=== PATIENT | male | born 1985 | race Caucasian/White ===

== ENCOUNTER 2019-01-09 10:53 | Emergency (ER) | payer MEDICAID, OTHER, SELFPAY ==
[~2019-01-09] VITALS: Ht 188 cm; Wt 77.7 kg
[2019-01-09 10:54] VITALS: BP 130/69
[2019-01-09] MEDS ORDERED: SERO1TAB PO (10:56)
[2019-01-09] MEDS ORDERED: MIRT1TAB16 PO (10:56)
[2019-01-09] MEDS ORDERED: ACETAMINOPHEN TAB 650MG DOSE (2X325MG) PO ONE (11:45)
--- NOTE | 2019-01-09 12:08 | REP ---
LEFT WRIST, FOUR VIEWS: Four views of the left wrist is performed. There is a nondisplaced fracture of the base of the 5th metacarpal. I see no other evidence of acute fracture or dislocation. IMPRESSION: Nondisplaced fracture base of 5th metacarpal. Electronically Signed by Antonio Lemus MD 01/09/2019 03:35 P
--- NOTE | 2019-01-09 12:13 | REP ---
LEFT HAND SERIES, FOUR VIEWS: Four views left hand performed. There is a nondisplaced fracture at the base of the fifth metacarpal. No other acute fracture, dislocation, or intrinsic bone disease is seen. IMPRESSION: Nondisplaced fracture base of fifth metacarpal. Electronically Signed by Antonio Lemus MD 01/09/2019 03:35 P
== END 2019-01-09 12:23 | disposition home or self-care (01) ==
LOC: M ED 10:53
DX: S62.347A Nondisplaced fracture of base of fifth metacarpal bone, left hand, initial encounter for closed fracture (principal); W22.8XXA Striking against or struck by other objects, initial encounter; Y92.89 Other specified places as the place of occurrence of the external cause; Y93.9 Activity, unspecified; Y99.0 Civilian activity done for income or pay; Z72.0 Tobacco use; F12.10 Cannabis abuse, uncomplicated; Z79.899 Other long term (current) drug therapy

== ENCOUNTER 2019-03-10 16:46 | Emergency (ER) | payer OTHER ==
[~2019-03-10] VITALS: Ht 188 cm; Wt 65.0 kg
[2019-03-10 17:36] LABS: HEMATOCRIT 42.2 % (42.0-52.0); HEMOGLOBIN 14.3 g/dl (13.5-17.5); MEAN CORPUSCULAR HEMOGLOBIN 34.5 pg (27.0-33.0); MEAN CORPUSCULAR HGB CONC 33.9 g/dl (32.0-36.5); MEAN CORPUSCULAR VOLUME 101.9 fl (80.0-96.0); PLATELET COUNT, AUTOMATED 142 10^3/uL (150-450); RED BLOOD COUNT 4.14 10^6/uL (4.30-6.10); WHITE BLOOD COUNT 4.8 10^3/uL (4.0-10.0)
[2019-03-10 18:16] LABS: ACETAMINOPHEN LEVEL < 2.0 UG/ML (10.0-30.0); ALBUMIN 3.9 GM/DL (3.2-5.2); ALT/SGPT 397 U/L (12-78); BILIRUBIN,DIRECT 0.2 MG/DL (0.0-0.2); BILIRUBIN,TOTAL 0.5 MG/DL (0.2-1.0); BLOOD UREA NITROGEN 15 MG/DL (7-18); CALCIUM LEVEL 8.7 MG/DL (8.5-10.1); CARBON DIOXIDE LEVEL 29 MEQ/L (21-32); CHLORIDE LEVEL 104 MEQ/L (98-107); ETHYL ALCOHOL (ETHANOL) < 0.003 % (0.000-0.010); GLOMERULAR FILTRATION RATE > 60.0 (>60); GLUCOSE, FASTING 135 MG/DL (70-100); POTASSIUM SERUM 4.3 MEQ/L (3.5-5.1); SALICYLATE LEVEL 2.8 MG/DL (5.0-30.0); SODIUM LEVEL 140 MEQ/L (136-145); TOTAL PROTEIN 6.4 GM/DL (6.4-8.2)
[2019-03-10 18:18] LABS: AMPHETAMINES LEVEL URINE NEGATIVE (NEGATIVE); BARBITURATES URINE NEGATIVE (NEGATIVE); BENZODIAZEPINES URINE NEGATIVE (NEGATIVE); CANNABINOIDS URINE POSITIVE (NEGATIVE); COCAINE METABOLITE URINE NEGATIVE (NEGATIVE); METHADONE URINE NEGATIVE (NEGATIVE); OPIATES URINE NEGATIVE (NEGATIVE); PHENCYCLIDINE URINE NEGATIVE (NEGATIVE)
--- NOTE | 2019-03-10 21:13 | ECGEPIP ---
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
[2019-03-11 01:59] VITALS: BP 102/64
[2019-03-11 10:25] LABS: HEPATITIS B SURFACE ANTIGEN NEGATIVE (NEGATIVE)
[2019-03-11 10:53] LABS: HEPATITIS B CORE ANTIBODY IGM NEGATIVE (NEGATIVE)
[2019-03-11 10:54] LABS: HEPATITIS A ANTIBODY IGM NEGATIVE (NEGATIVE)
[2019-03-11 10:55] LABS: HEPATITIS C VIRUS ABY INDEX > 11.0 INDEX (<0.8)
== END 2019-03-11 02:03 | disposition short-term general hospital (02) ==
LOC: M ED 16:46
DX: F33.9 Major depressive disorder, recurrent, unspecified (principal); R45.851 Suicidal ideations; Z79.899 Other long term (current) drug therapy; F17.210 Nicotine dependence, cigarettes, uncomplicated
CPT/HCPCS: 36415; 80048; 80076; 80307; 84443; 85027; 86705; 86709; 86803; 87340; 93005; 99285; G0480

== ENCOUNTER → 2019-03-10 | Outpatient (REF) | payer OTHER ==
[~2019-03-10] MED LIST: MIRT1TAB16 PO; SERO1TAB PO
[2019-03-10 19:48] LABS: ALBUMIN 4.4 GM/DL (3.2-5.2); ALT/SGPT 402 U/L (12-78); BILIRUBIN,TOTAL 0.6 MG/DL (0.2-1.0); BLOOD UREA NITROGEN 16 MG/DL (7-18); CALCIUM LEVEL 9.3 MG/DL (8.5-10.1); CARBON DIOXIDE LEVEL 29 MEQ/L (21-32); CHLORIDE LEVEL 104 MEQ/L (98-107); CHOLESTEROL LEVEL 145 MG/DL (<200); CREATININE FOR GFR 0.86 MG/DL (0.70-1.30); FREE T4 1.28 NG/DL (0.76-1.46); GLOMERULAR FILTRATION RATE > 60.0 (>60); GLUCOSE, FASTING 110 MG/DL (70-100); HDL CHOLESTEROL 81 MG/DL (>40); LDL CHOLESTEROL 45 MG/DL (<100); NON-HDL-C 64 MG/DL; POTASSIUM SERUM 4.2 MEQ/L (3.5-5.1); SODIUM LEVEL 138 MEQ/L (136-145); THYROID STIMULATING HORMONE 0.996 uIU/ML (0.358-3.740); TOTAL 25(OH) VITAMIN D 30.5 NG/ML (30.0-100.0); TOTAL PROTEIN 7.2 GM/DL (6.4-8.2); TRIGLYCERIDES LEVEL 96 MG/DL (<150)
[2019-03-10 20:06] LABS: BASO % 0.9 % (0.0-1.0); EOS # 0.1 10^3/uL (0.0-0.50); EOS % 1.7 % (0.0-3.0); HEMATOCRIT 44.6 % (42.0-52.0); HEMOGLOBIN 14.9 g/dl (13.5-17.5); LYMPH % 22.2 % (24.0-44.0); MEAN CORPUSCULAR HEMOGLOBIN 33.3 pg (27.0-33.0); MEAN CORPUSCULAR HGB CONC 33.4 g/dl (32.0-36.5); MEAN CORPUSCULAR VOLUME 99.6 fl (80.0-96.0); MONO # 0.4 10^3/uL (0.0-0.8); MONO % 9.5 % (0.0-5.0); NEUTROPHILS % 65.5 % (36.0-66.0); PLATELET COUNT, AUTOMATED 170 10^3/uL (150-450); RED BLOOD COUNT 4.48 10^6/uL (4.30-6.10); WHITE BLOOD COUNT 4.6 10^3/uL (4.0-10.0)
[2019-03-10 20:42] LABS: HEMOGLOBIN A1c 5.2 %
[2019-03-11 10:20] LABS: HEPATITIS B SURFACE ANTIGEN NEGATIVE (NEGATIVE)
[2019-03-11 10:47] LABS: HEPATITIS B CORE ANTIBODY IGM NEGATIVE (NEGATIVE)
[2019-03-11 10:48] LABS: HIV 1&2 SCREEN CENTAUR NEGATIVE (NEGATIVE)
[2019-03-11 10:49] LABS: HEPATITIS A ANTIBODY IGM NEGATIVE (NEGATIVE)
[2019-03-11 10:54] LABS: HEPATITIS C VIRUS ABY INDEX > 11.0 INDEX (<0.8)
[2019-03-14 09:34] LABS: HSV TYPE II IgG SPECIFIC <0.91 index (0.00-0.90); Lyme Disease IgG/IgM Antibodie <0.91 ISR (0.00-0.90); Lyme Disease IgM Ab Quantitati <0.80 index (0.00-0.79)
== END ==
LOC: M LAB REF 18:34
PROVIDERS: ATTEND Family Medicine
DX: F19.19 Other psychoactive substance abuse with unspecified psychoactive substance-induced disorder (principal); Z13.228 Encounter for screening for other metabolic disorders; R63.4 Abnormal weight loss

== ENCOUNTER → 2019-03-10 | Outpatient (REF) | payer OTHER ==
[2019-03-10 20:50] LABS: APPEARANCE, URINE CLEAR (CLEAR); BACTERIA, URINE AUTO NEGATIVE (NEGATIVE); BILIRUBIN, URINE AUTO NEGATIVE (NEGATIVE); BLOOD, URINE BLOOD NEGATIVE (NEGATIVE); COLOR, URINE STRAW (YELLOW); GLUCOSE, URINE (UA) AUTO NEGATIVE (NEGATIVE); KETONE, URINE AUTO NEGATIVE (NEGATIVE); LEUKOCYTE ESTERASE, URINE AUTO NEGATIVE (NEGATIVE); NITRITE, URINE AUTO NEGATIVE (NEGATIVE); PROTEIN, URINE AUTO NEGATIVE (NEGATIVE); RBC, URINE AUTO 1 /HPF (0-3); SPECIFIC GRAVITY URINE AUTO 1.004 (1.002-1.035); SQUAMOUS EPITHELIAL CELL UR AU 0 /HPF (0-6); UROBILINOGEN, URINE AUTO 0.2 mg/dL (0.0-2.0); WBC, URINE AUTO 0 /HPF (0-3)
== END ==
LOC: M LAB REF 16:42
PROVIDERS: ATTEND Family Medicine
DX: Z13.228 Encounter for screening for other metabolic disorders (principal); R63.4 Abnormal weight loss

== ENCOUNTER → 2019-04-02 | Outpatient (REF) | payer OTHER ==
[2019-04-02 12:15] LABS: INR 0.93; PROTHROMBIN TIME 12.2 SECONDS (11.8-14.0)
[2019-04-03 10:34] LABS: HEPATITIS B SURFACE ANTIBODY POSITIVE (POSITIVE); HEPATITIS B SURFACE ANTIGEN NEGATIVE (NEGATIVE); HIV 1&2 SCREEN CENTAUR NEGATIVE (NEGATIVE)
[2019-04-07 00:06] LABS: HEPATITIS A IgG TOTAL Negative (Negative); HEPATITIS B CORE ANTIBODY IGG Negative (Negative); HEPATITIS C QUANTITATION 4356110 IU/mL (.); HEPATITIS C VIRUS GENOTYPE 3 (.)
== END ==
LOC: M LAB REF 11:23
PROVIDERS: ATTEND Nurse Practitioner Adult Health
DX: B18.2 Chronic viral hepatitis C (principal)

== ENCOUNTER → 2019-06-01 | Outpatient (REF) | payer OTHER | LOC: M LAB REF 17:10 | PROVIDERS: ATTEND Family Medicine | DX: B18.2 Chronic viral hepatitis C (principal) ==

== ENCOUNTER → 2019-06-25 | Outpatient (REF) | payer MEDICAID ==
[2019-06-30 14:15] LABS: HEPATITIS C QUANTITATION HCV Not Detected IU/mL (.)
== END ==
LOC: M LAB REF 16:51
PROVIDERS: ATTEND Nurse Practitioner Adult Health
DX: B18.2 Chronic viral hepatitis C (principal)

== ENCOUNTER 2019-07-24 10:37 | Inpatient (IN) | payer MEDICAID, OTHER ==
[~2019-07-24] VITALS: Ht 188 cm; Wt 70.0 kg
[2019-07-24] MEDS ORDERED: QUET200T2 PO (10:50)
[2019-07-24] MEDS ORDERED: ONDA4TAB5 PO (10:50)
[2019-07-24] MEDS ORDERED: LORA-674 PO (11:15)
[2019-07-24] MEDS ORDERED: NS 1,000 ML IV ONE (11:15)
[2019-07-24 11:37] LABS: HEMATOCRIT 44.6 % (42.0-52.0); HEMOGLOBIN 15.1 g/dl (13.5-17.5); MEAN CORPUSCULAR HEMOGLOBIN 34.5 pg (27.0-33.0); MEAN CORPUSCULAR HGB CONC 33.9 g/dl (32.0-36.5); MEAN CORPUSCULAR VOLUME 101.8 fl (80.0-96.0); PLATELET COUNT, AUTOMATED 214 10^3/uL (150-450); RED BLOOD COUNT 4.38 10^6/uL (4.30-6.10); WHITE BLOOD COUNT 4.9 10^3/uL (4.0-10.0)
[2019-07-24 11:48] LABS: PROTHROMBIN TIME 12.9 SECONDS (11.8-14.0)
[2019-07-24 11:49] LABS: PARTIAL THROMBOPLASTIN TIME 36.8 SECONDS (25.0-38.4)
[2019-07-24 12:02] LABS: ALBUMIN 3.2 GM/DL (3.2-5.2); ALT/SGPT 1223 U/L (12-78); BILIRUBIN,DIRECT 3.3 MG/DL (0.0-0.2); BILIRUBIN,TOTAL 4.3 MG/DL (0.2-1.0); BLOOD UREA NITROGEN 9 MG/DL (7-18); CALCIUM LEVEL 8.7 MG/DL (8.5-10.1); CARBON DIOXIDE LEVEL 29 MEQ/L (21-32); CHLORIDE LEVEL 104 MEQ/L (98-107); CREATININE FOR GFR 0.92 MG/DL (0.70-1.30); GLOMERULAR FILTRATION RATE > 60.0 (>60); GLUCOSE, FASTING 95 MG/DL (70-100); LIPASE 110 U/L (73-393); POTASSIUM SERUM 4.1 MEQ/L (3.5-5.1); SODIUM LEVEL 139 MEQ/L (136-145); TOTAL PROTEIN 7.1 GM/DL (6.4-8.2)
[2019-07-24 12:25] LABS: ATYPICAL LYMPH 5 % (0-5); BASOPHILS 1 % (0-1); EOSINOPHILS 9 % (0-3); LYMPHOCYTES 38 % (16-44); MONOCYTES 3 % (0-5); NEUTROPHILS 39 % (28-66); PLATELET ESTIMATE NORMAL (NORMAL)
[2019-07-24] MEDS ORDERED: REME15TA PO (12:34)
[2019-07-24] MEDS ORDERED: PROAAER10 INH (12:34)
[2019-07-24] MEDS ORDERED: EPIP0.3I2 IM (12:34)
--- NOTE | 2019-07-24 12:35 | REP ---
CHEST, TWO VIEWS: There is no evidence of acute infiltrate. No pleural effusion is seen. The heart is normal in size. The mediastinal silhouette is unremarkable. The visualized osseous structures are intact. IMPRESSION: No acute pulmonary disease. Electronically Signed by Antonio Lemus MD 07/28/2019 08:47 A
--- NOTE | 2019-07-24 14:07 | REP ---
Abdominal right upper quadrant ultrasound: The studies performed for jaundice and the patient is unable to keep anything down for the past 6 days and complains of dark urine. The gallbladder is not distended in spite of the patient being n.p.o. for 12 hours. The gallbladder wall is thickened measuring up to 4 mm, however this could be artifact from under distension. There is no cholelithiasis or pericholecystic fluid. There is no intrahepatic or extrahepatic biliary duct dilatation. The common biliary duct measures 3.6 mm in diameter. The hepatic parenchyma is homogeneous. There are three peripancreatic lymph nodes measuring up to 0.6 cm short axis, normal size. The visualized pancreatic parenchyma is unremarkable. The right kidney measures 11.2 x 5.3040 cm and is normal size. There is mild dilatation of the right renal pelvis and calyces. This is nonspecific. There is no right upper quadrant ascites. Impression: Incomplete gallbladder distension. Gallbladder wall thickening, possibly artifact from incomplete distension. No cholelithiasis, pericholecystic fluid or biliary duct dilatation. No ascites. Normal-sized peripancreatic lymph nodes. Mild dilatation of the right renal pelvis and calyces. Hepatic parenchyma is homogeneous. There are no hepatic masses. Electronically Signed by Antonio Lyons MD 07/24/2019 01:59 P
[2019-07-24] MEDS ORDERED: ISOVUE-370 76% 100ML VIAL (Q9967) As Ordered ONE (14:48)
--- NOTE | 2019-07-24 15:27 | HPEPDOC ---
General Date of Admission 07/24/19 Date of Service: Jul 24, 2019 Attending Physician: NICK FARAH DO Chief Complaint The patient is a 34-year-old male admitted with a reason for visit of Vomiting. Source: Patient, Family Exam Limitations: No limitations Timing/Duration: Day(s) (7) Severity: Moderate Associated Symptoms: Fever, Loss of appetite, Malaise, Nausea, Vomiting History of Present Illness Patient is 34 years old male with past medical history of hepatitis C, drugs abuse, tobacco abuse, anxiety, depression presented hospital with right upper quadrant pain. Patient stated that right upper quadrant pain started around 7 days ago, 6 out of 10 associated with nausea and vomiting. Patient lost appetite during this week, he noticed that his skin became yellow. Also patient had low- grade fever of 100.4. Also patient noticed that his urine became dark, eyes yellowish Of note patient has recently been treated for hepatitis C with Glecaprevir/ pibrentasvir (Mavyret) , last dose was June 22. According to him after the course of treatment he was tested negative for viral load. In ER patient was found to have on ultrasound gallbladder wall thickening, possibly artifact from incomplete distension. No cholelithiasis, pericholecystic fluid or biliary duct dilatation. Blood workup was significant for total bilirubin of 4.3, direct bilirubin of 3.3, AST 472, ALT 1223, alkaline phosphatase 472, urine was positive for bilirubin and for urobilinogen. Patient had a fever on the admission 100.4, no leukocytosis Home Medications Scheduled Loratadine (Loratadine) 10 Mg Tablet, 10 MG PO DAILY, (Reported) Mirtazapine (Remeron) 15 Mg Tablet, 15 MG PO DAILY, (Reported) Quetiapine Fumarate (Quetiapine Fumarate) 200 Mg Tablet, 200 MG PO QHS, (Reported) Scheduled PRN Albuterol Sulfate (Proair Hfa) 8.5 Gm Hfa.aer.ad, 2 PUFF INH QID PRN for SHORTNESS OF BREATH, (Reported) Epinephrine (Epipen 2-Jim) 0.3 Mg/0.3 Ml Auto.injct, 1 SYRINGE IM ONCE PRN for ANAPHYLAXIS, (Reported) Ondansetron HCl (Ondansetron HCl) 4 Mg Tablet, 4 MG PO Q6H PRN for NAUSEA OR VOMITING, (Reported) Allergies Coded Allergies: bee venom protein (honey bee) (Verified Allergy, Severe, ANAPHYLAXIS, 07/24/19) Past Medical History Medical History Depression, anxiety, hepatitis C Surgical History Negative Family History Father has hypertension Social History * Smoker: current smoker Alcohol: occationally Drugs: heroin, marijuana, IV drug use Multiple drug use including ed IV, heroin IV in the past, marijuana daily A-FIB/CHADSVASC A-FIB History Current/History of A-Fib/PAF?: No Current PO Anticoag Therapy: No Review of Systems Constitutional: Reports: Chills, Fever, Weakness Eyes: Denies: Pain, Vision change ENT: Denies: Head Aches, Ear Pain Skin: Reports: Jaundice; Denies: Rash, Lesions Pulmonary: Denies: Dyspnea, Cough Cardiovascular: Denies: Chest Pain, Palpitations Gastrointestinal: Reports: Nausea, Vomiting, Constipation Genitourinary: Denies: Dysuria, Frequency Hematologic: Denies: Bruising, Bleeding Excessively Endocrine: Denies: Polydipsia, Polyphagia Musculoskeletal: Denies: Neck Pain, Back Pain Neurological: Denies: Weakness, Numbness Psych: Reports: Mood Normal Physical Examination General Exam: Positive: Alert, Cooperative Eye Exam: Positive: PERRLA, Conjunctiva & lids normal ENT Exam: Positive: Atraumatic, Mucous membr. moist/pink Neck Exam: Positive: Supple; Negative: JVD Chest Exam: Positive: Clear to auscultation Heart Exam: Positive: Rate Normal Telemetry: Positive: No significant arrhythmia Abdomen Exam: Positive: Normal bowel sounds Extremity Exam: Negative: Clubbing, Cyanosis Skin Exam: Positive: Nl turgor and temperature, Other skin issue (yellowish) Neuro Exam: Positive: Normal Gait, Strength at 5/5 X4 ext Psych Exam: Positive: Mental status NL Vital Signs Vital Signs Date Time Temp Pulse Resp B/P (MAP) Pulse Ox O2 Delivery O2 Flow Rate FiO2 07/24/19 13:40 96.9 56 18 112/65 (81) 99 07/24/19 10:37 Room Air Laboratory Data Labs 24H Laboratory Tests 2 07/24/19 11:13: Nucleated Red Blood Cells % (auto) 0.0, Neutrophils 39, Band Neutrophils 5, Lymphocytes (Manual) 38, Monocytes (Manual) 3, Eosinophils (Manual) 9H, Basop hils (Manual) 1, Atypical Lymphocytes 5, Platelet Estimate NORMAL, Prothrombin Time 12.9, Prothromb Time International Ratio 1.00, Activated Partial Thromboplast Time 36.8, Anion Gap 6L, Glomerular Filtration Rate > 60.0, Calcium Level 8.7, Aspartate Amino Transf (AST/SGOT) 472H, Alanine Aminotransferase (ALT/SGPT) 1223H, Alkaline Phosphatase 472H, Total Bilirubin 4.3H, Direct Bilirubin 3.3H, Total Protein 7.1, Albumin 3.2, Albumin/Globulin Ratio 0.82L, Lipase 110 07/24/19 11:23: Urine Color MADDI, Urine Appearance CLEAR, Urine pH 7.0, Urine Specific [place] 1.017, Urine Protein NEGATIVE, Urine Glucose (UA) NEGATIVE, Urine Ketones NEGATIVE, Urine Blood NEGATIVE, Urine Nitrite NEGATIVE, Urine Bilirubin 2+H, Urine Urobilinogen 4.0H, Urine Leukocyte Esterase NEGATIVE, Urine WBC (Auto) 1, Urine RBC (Auto) 2, Urine Hyaline Casts (Auto) 0, Urine Bacteria (Auto) NEGATIVE, Urine Squamous Epithelial Cells 0, Urine Mucus (Auto) SMALL, Urine Sperm (Auto) CBC/BMP Laboratory Tests 07/24/19 11:13 Red Blood Count 4.38, Mean Corpuscular Volume 101.8 H, Mean Corpuscular Hemoglobin 34.5 H, Mean Corpuscular Hemoglobin Concent 33.9, Red Cell Distribution Width 13.4 Microbiology Microbiology 07/24/19 Blood Culture, Received Pending 07/24/19 Blood Culture, Received Pending Assessment/Plan Patient is 34 years old male with past medical history of hepatitis C, drugs abuse, tobacco abuse, anxiety, depression presented hospital with right upper quadrant pain. Patient stated that right upper quadrant pain started around 7 days ago, 6 out of 10 associated with nausea and vomiting. Patient lost appetite during this week, he noticed that his skin became yellow. 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
[2019-07-24] MEDS ORDERED: ALBUTEROL 90 MCG/ACT 8GM HFA INHALER INH PRN (15:30)
[2019-07-24] MEDS ORDERED: ONDANSETRON 4MG/2ML VIAL (J2405) IV PRN (15:30)
[2019-07-24] MEDS ORDERED: IBUPROFEN 400 MG TAB PO PRN (15:30)
[2019-07-24] MEDS: NS 1,000 ML IV SCH (15:48)
--- NOTE | 2019-07-24 15:55 | REP ---
CT of the abdomen and pelvis with IV contrast, without bowel contrast: The study is correlated with the gallbladder ultrasound performed earlier today. The visualized lung olea are unremarkable. The hepatic parenchyma is homogeneous. The liver is enlarged measuring 18 cm craniocaudad in the midclavicular line. There is no ascites. The gallbladder is contracted, gallbladder wall enhances. There are no gallbladder calculi. This is nonspecific and may represent acalculous cholecystitis in the appropriate clinical setting. The abdominal vena cava is dilated measuring up to 30 mm in diameter. This is nonspecific but can be seen fluid overload and right heart failure. There is questionably a poorly defined mass in the head of the pancreas measuring approximate 2.9 x 2.2 cm. Followup MRI might be considered for confirmation. There is no pancreatic duct dilatation. There is no pancreatitis. The spleen is normal size and homogeneous. The adrenals and kidneys are unremarkable. Abdominal aorta is unremarkable. There is no periaortic adenopathy or mass. There is no bowel distension or obstruction. Pelvis: The appendix is unremarkable. There is a trace of ascites in the dependent pelvis. The pelvic bowel loops are unremarkable. The bladder is collapsed and cannot be assessed. There is no pelvic mass. There are no lytic, blastic or destructive skeletal changes. Impression: Hepatomegaly. Dilated abdominal vena cava measuring up to 30 mm in diameter, nonspecific but can be seen in fluid overload and right heart failure. There is a trace of ascites in the pelvis. Questionable mass in the head of the pancreas. Consider MRI for confirmation. No pancreatic duct dilatation or pancreatitis. No hydronephrosis or perinephric stranding. The gallbladder is partially distended. There is enhancement of the gallbladder wall. There is no cholelithiasis. These findings are nonspecific, however, are compatible with acalculous cholecystitis in the appropriate clinical setting. Electronically Signed by Antonio Lyons MD 07/24/2019 03:45 P
[2019-07-24 16:40] LABS: INR 1.03; PROTHROMBIN TIME 13.2 SECONDS (11.8-14.0)
[2019-07-24 17:47] VITALS: BP 115/67
[2019-07-24 22:00] VITALS: BP 113/68
[2019-07-24] MEDS: HEPARIN SOD (PORCINE) 5000 UNITS/ML VIAL SC SCH (22:41)
[2019-07-24] MEDS: QUEtiapine FUMARATE 200 MG TAB PO SCH (22:41)
--- NOTE | 2019-07-24 23:59 | CR.PDOC ---
General Date of Consultation: Jul 24, 2019 Referring Provider: NICK ORONA DO Attending Physician: DOUG SAHA MD Consultation Primary physician/ hospitalist: Dr. Nick Orona Reason for consult: Abnormal Liver panel. HPI: 34 years old male patient with history of IV drug use, (Quit and denies any recent use)), h/o hepatitis C, ( s/p therapy with Mavyret, completed therapy by June 15 with undetectable VL post therapy), active smoker and alcohol use, anxiety, depression presented hospital for symptoms of dark coloured urine for few days along with nausea, vomiting and upper abdominal pain. GI was consulted for abnormal liver panel. Patient reports his symptoms started with diarrhea for 1-2 weeks and then followed with acute onset nausea and vomiting, and unable to tolerate any oral intake, since last week Saturday and lasted till Saturday. He started noticing dark, cola colored urine for the past few days and He also reports having upper abdominal pain for a long time and attributes to his acid reflux. Patient also reports sore throat for which he was given antibiotic within last two week by his PCP. Patient also reports heavy alcohol use in past but recently decreased his alcohol intake. Pertinent negative GI symptoms: Patient denies sick contacts, recent travel, hematemesis, melena or hematochezia, altered mental status, Syncope, OTC herbal supplements, drug over doses. Review of Systems: GI: as stated above CVS: No chest pain, No palpitations, No leg swelling. RS: No Shortness of breath, No Wheezing, no cough PLY SPLICER: No dizziness, No motor weakness, No sensory problems Hematology: No bruising, No gum bleeding, Musculoskeletal: No joint pain, ambulating well. Skin: No rash : No hematuria, No burning sensation of the urine ENT: No ear discharge/ pain, No dysphagia. Eyes: No photophobia. Jaundice Home medications: reviewed. Antithrombotic agents - None Medical h/o: As above. Surgical h/o: None on abdomen. Social h/o: Alcohol Active ( as stated above) , smoking Active. , IVDA/ drugs quit few months ago, Denies any recent use. . Family h/o of GI cancers - None Prior Endoscopies: None Prior GI evaluations: None in [facility]. Exam: Vitals: reviewed General: Alert and oriented x 3, not in distress HEENT: No pallor, Mild scleral icterus. Normal oropharynx, NO cervical lymph nodes. Chest: symmetric with bilateral clear air entry, CVS: S1, S2 heard, normal, no murmurs . Abdomen: non-distended, no surgical scars, soft, Minimal tender, no palpable masses, normal bowel sounds heard. Rectal exam: Patient refused / Deferred at this time. Extremities: no pedal edema, pulses palpable. PLY SPLICER: no focal motor or sensory deficits. Moves all extremities Skin: no rash. Labs: reviewed. HBV immune, Chronic HCV with prior therapy with Mavyret. Imaging: reviewed. Ultrasound Abdomen -- gallbladder wall thickening, possibly artifact from incomplete distension. No cholelithiasis, pericholecystic fluid or biliary duct dilatation Impression: - Acute onset Nausea, vomiting, with prior diarrhea, mild upper abdominal pain, Dark urine with jaundice, mixed hepatocellular pattern of elevated liver enzymes, and prior antibiotic use DDxlikely acute hepatitis A vs Drug induced liver injury ( DILI ) vs rule out recurrent HCV infection vs Alcohol related liver disease vs rule out other viral hepatitis. NO evidence of biliary obstruction. Recommendations: - Patient educated about the test results, possible differential diagnoses and All questions answered. - Supportive care with IV hydration, oral diet as tolerated. - Consider oral multivitamin, with thiamine and folic acid supplementation. - Obtain HAV IgM, HCV viral load, serum and urine toxicology screens. - Avoid hepatotoxic medications. Educated patient on cessation of alcohol and smoking - Monitor mental status, renal function, liver panel and INR daily. - If worsening of mental status or renal dysfunction or worsening INR, please consider transfer to liver center for further management. Plan of care discussed with patient and primary team. Patient verbalized understanding and agreed with the plan. Vital Signs/I&O Vital Signs Date Time Temp Pulse Resp B/P (MAP) Pulse Ox O2 Delivery O2 Flow Rate FiO2 07/24/19 22:00 98.5 60 18 113/68 (83) 99 07/24/19 17:21 Room Air Laboratory Data Labs 24H Laboratory Tests 2 07/24/19 11:13: Nucleated Red Blood Cells % (auto) 0.0, Neutrophils 39, Band Neutrophils 5, Lymphocytes (Manual) 38, Monocytes (Manual) 3, Eosinophils (Manual) 9H, Basophils (Manual) 1, Atypical Lymphocytes 5, Platelet Estimate NORMAL, Prothrombin Time 12.9, Prothromb Time International Ratio 1.00, Activated Partial Thromboplast Time 36.8, Anion Gap 6L, Glomerular Filtration Rate > 60.0, Calcium Level 8.7, Aspartate Amino Transf (AST/SGOT) 472H, Alanine Aminotransferase (ALT/SGPT) 1223H, Alkaline Phosphatase 472H, Total Bilirubin 4.3H, Direct Bilirubin 3.3H, Total Protein 7.1, Albumin 3.2, Albumin/Globulin Ratio 0.82L, Lipase 110 07/24/19 11:23: Urine Color MADDI, Urine Appearance CLEAR, Urine pH 7.0, Urine Specific [place] 1.017, Urine Protein NEGATIVE, Urine Glucose (UA) NEGATIVE, Urine Ketones NEGATIVE, Urine Blood NEGATIVE, Urine Nitrite NEGATIVE, Urine Bilirubin 2+H, Urine Urobilinogen 4.0H, Urine Leukocyte Esterase NEGATIVE, Urine WBC (Auto) 1, Urine RBC (Auto) 2, Urine Hyaline Casts (Auto) 0, Urine Bacteria (Auto) NEGATIVE, Urine Squamous Epithelial Cells 0, Urine Mucus (Auto) SMALL, Urine Sperm (Auto) 07/24/19 16:17: Prothrombin Time 13.2, Prothromb Time International Ratio 1.03, Lactic Acid Level 1.4 CBC/BMP Laboratory Tests 07/24/19 11:13 Red Blood Count 4.38, Mean Corpuscular Volume 101.8 H, Mean Corpuscular Hemoglobin 34.5 H, Mean Corpuscular Hemoglobin Concent 33.9, Red Cell Distribution Width 13.4 Microbiology Microbiology 07/24/19 Blood Culture, Received Pending 07/24/19 Blood Culture, Received Pending Allergies Coded Allergies: bee venom protein (honey bee) (Verified Allergy, Severe, ANAPHYLAXIS, 07/24/19) Home Medications Scheduled Loratadine (Loratadine) 10 Mg Tablet, 10 MG PO DAILY, (Reported) Mirtazapine (Remeron) 15 Mg Tablet, 15 MG PO DAILY, (Reported) Quetiapine Fumarate (Quetiapine Fumarate) 200 Mg Tablet, 200 MG PO QHS, (Reported) Scheduled PRN Albuterol Sulfate (Proair Hfa) 8.5 Gm Hfa.aer.ad, 2 PUFF INH QID PRN for SHORTNESS OF BREATH, (Reported) Epinephrine (Epipen 2-Jim) 0.3 Mg/0.3 Ml Auto.injct, 1 SYRINGE IM ONCE PRN for ANAPHYLAXIS, (Reported) Ondansetron HCl (Ondansetron HCl) 4 Mg Tablet, 4 MG PO Q6H PRN for NAUSEA OR VOMITING, (Reported) DOUG SAHA MD Jul 24, 2019 23:58
[2019-07-25] MEDS: NS 1,000 ML IV SCH (00:09)
[2019-07-25 04:45] LABS: HIV 1&2 SCREEN CENTAUR NEGATIVE (NEGATIVE)
[2019-07-25 06:00] VITALS: BP 113/70
[2019-07-25 06:50] LABS: HEMATOCRIT 40.4 % (42.0-52.0); HEMOGLOBIN 13.4 g/dl (13.5-17.5); MEAN CORPUSCULAR HEMOGLOBIN 34.1 pg (27.0-33.0); MEAN CORPUSCULAR HGB CONC 33.2 g/dl (32.0-36.5); MEAN CORPUSCULAR VOLUME 102.8 fl (80.0-96.0); PLATELET COUNT, AUTOMATED 225 10^3/uL (150-450); RED BLOOD COUNT 3.93 10^6/uL (4.30-6.10); WHITE BLOOD COUNT 4.8 10^3/uL (4.0-10.0)
[2019-07-25 06:53] LABS: INR 1.02; PROTHROMBIN TIME 13.1 SECONDS (11.8-14.0)
[2019-07-25] MEDS ORDERED: LORazepam 2 MG TAB PO PRN (07:00)
[2019-07-25 07:08] LABS: ALBUMIN 2.6 GM/DL (3.2-5.2); ALT/SGPT 868 U/L (12-78); BILIRUBIN,TOTAL 2.7 MG/DL (0.2-1.0); BLOOD UREA NITROGEN 6 MG/DL (7-18); CALCIUM LEVEL 8.3 MG/DL (8.5-10.1); CARBON DIOXIDE LEVEL 30 MEQ/L (21-32); CHLORIDE LEVEL 110 MEQ/L (98-107); CREATININE FOR GFR 0.82 MG/DL (0.70-1.30); GLOMERULAR FILTRATION RATE > 60.0 (>60); GLUCOSE, FASTING 95 MG/DL (70-100); MAGNESIUM LEVEL 2.1 MG/DL (1.8-2.4); POTASSIUM SERUM 4.8 MEQ/L (3.5-5.1); SODIUM LEVEL 142 MEQ/L (136-145); TOTAL PROTEIN 6.2 GM/DL (6.4-8.2)
[2019-07-25] MEDS: THIAMINE 100 MG TAB PO SCH ×2 (07:50→21:58)
[2019-07-25] MEDS: LORATADINE 10 MG TAB PO SCH (07:50)
[2019-07-25] MEDS: MIRTAZAPINE 15 MG TAB PO SCH (07:50)
[2019-07-25] MEDS: FOLIC ACID 1 MG TAB PO SCH (07:50)
[2019-07-25] MEDS: MULTIVITAMINS/MINERALS THERAP 1 TAB PO SCH (07:50)
[2019-07-25] MEDS: HEPARIN SOD (PORCINE) 5000 UNITS/ML VIAL SC SCH ×2 (07:52→21:00)
[2019-07-25] MEDS ORDERED: INFLUENZA QUADRIVALENT PF VACCINE 0.5ML SYRINGE (90686) IM ONE (09:00)
--- NOTE | 2019-07-25 12:23 | IPNPDOC ---
Text Note Date of Service The patient was seen on 07/25/19. NOTE Subjective: Patient complains of moderate right upper quadrant pain which santana bsided significantly from yesterday. He has a good appetite. Denies fever, chills, nausea, vomiting, diarrhea or dysuria. Physical Examination General Exam: Positive: Alert, Cooperative Eye Exam: Positive: PERRLA, icterus ENT Exam: Positive: Atraumatic, Mucous membr. moist/pink Neck Exam: Positive: Supple; Negative: JVD Chest Exam: Positive: Clear to auscultation Heart Exam: Positive: Rate Normal Telemetry: Positive: No significant arrhythmia Abdomen Exam: Positive: Normal bowel sounds, tenderness over right upper quadrant, no rebound, no rigidity Extremity Exam: Negative: Clubbing, Cyanosis Skin Exam: Positive: Nl turgor and temperature, Other skin issue (yellowish) Neuro Exam: Positive: Normal Gait, Strength at 5/5 X4 ext Psych Exam: Positive: Mental status NL CT of the abdomen and pelvis with IV contrast, without bowel contrast: The study is correlated with the gallbladder ultrasound performed earlier today. The visualized lung olae are unremarkable. The hepatic parenchyma is homogeneous. The liver is enlarged measuring 18 cm craniocaudad in the midclavicular line. There is no ascites. The gallbladder is contracted, gallbladder wall enhances. There are no gallbladder calculi. This is nonspecific and may represent acalculous cholecystitis in the appropriate clinical setting. The abdominal vena cava is dilated measuring up to 30 mm in diameter. This is nonspecific but can be seen fluid overload and right heart failure. There is questionably a poorly defined mass in the head of the pancreas measuring approximate 2.9 x 2.2 cm. Followup MRI might be considered for confirmation. There is no pancreatic duct dilatation. There is no pancreatitis. The spleen is normal size and homogeneous. The adrenals and kidneys are unremarkable. Abdominal aorta is unremarkable. There is no periaortic adenopathy or mass. There is no bowel distension or obstruction. Pelvis: The appendix is unremarkable. There is a trace of ascites in the dependent pelvis. The pelvic bowel loops are unremarkable. The bladder is collapsed and cannot be assessed. There is no pelvic mass. There are no lytic, blastic or destructive skeletal changes. Impression: Hepatomegaly. Dilated abdominal vena cava measuring up to 30 mm in diameter, nonspecific but can be seen in fluid overload and right heart failure. There is a trace of ascites in the pelvis. Questionable mass in the head of the pancreas. Consider MRI for confirmation. No pancreatic duct dilatation or pancreatitis. No hydronephrosis or perinephric stranding. The gallbladder is partially distended. There is enhancement of the gallbladder wall. There is no cholelithiasis. These findings are nonspecific, however, are compatible with acalculous cholecystitis in the appropriate clinical setting. Assessment/Plan Patient is 34 years old male with past medical history of hepatitis C, drugs abuse, tobacco abuse, anxiety, depression presented hospital with right upper quadrant pain. Patient stated that right upper quadrant pain started around 7 days ago, 6 out of 10 associated with nausea and vomiting. Patient lost appetite during this week, he noticed that his skin became yellow. Problems (1) Right upper quadrant pain Problem Text: Differential diagnosis includes cholecystitis, reactivation of hepatitis C, hep A, Mavyret side effect Ultrasound of right upper quadrant did not show bile duct dilatation or significant inflammation of gallbladder Hepatitis panel, with hepatitis C viral load pending will continue to monitor PT/INR CT of abdomen showed questionably a poorly defined mass in the head of the pancreas measuring approximate 2.9 x 2.2 cm. There is no pancreatic duct dilatation. There is no pancreatitis. MRI of abdomen with contrast ordered Dr. Sharp recommended supportive treatment for now and MRI of abdomen with pancreatic protocol IV fluid Pain management (2) Elevated LFTs Status: Acute Problem Text: Patient has transaminitis with hyperbilirubinemia Unclear etiology See above (3) Jaundice Status: Acute Problem Text: See above (4) Vomiting Status: Acute Problem Text: Zofran when necessary VS,Fishbone, I+O VS, Fishbone, I+O Laboratory Tests 07/25/19 06:18 Red Blood Count 3.93 L, Mean Corpuscular Volume 102.8 H, Mean Corpuscular Hemoglobin 34.1 H, Mean Corpuscular Hemoglobin Concent 33.2, Red Cell Di stribution Width 13.8, Calcium Level 8.3 L, Aspartate Amino Transf (AST/SGOT) 282 H, Alanine Aminotransferase (ALT/SGPT) 868 H, Alkaline Phosphatase 432 H, Total Bilirubin 2.7 H, Total Protein 6.2 L, Albumin 2.6 L Vital Signs Date Time Temp Pulse Resp B/P (MAP) Pulse Ox O2 Delivery O2 Flow Rate FiO2 07/25/19 06:00 97.7 56 18 113/70 (84) 99 07/24/19 17:21 Room Air I&O- Last 24 Hours up to 6 AM 07/25/19 06:00 Intake Total 1700 ml Balance 1700 ml NICK FARAH DO Jul 25, 2019 12:23
[2019-07-25 14:00] VITALS: BP 112/71
[2019-07-25 15:26] LABS: INR 0.95; PROTHROMBIN TIME 12.4 SECONDS (11.8-14.0)
[2019-07-25] MEDS: QUEtiapine FUMARATE 200 MG TAB PO SCH (21:58)
[2019-07-25 22:00] VITALS: BP 112/68
[2019-07-26 06:00] VITALS: BP 108/62
[2019-07-26 07:09] LABS: HEMATOCRIT 40.9 % (42.0-52.0); HEMOGLOBIN 13.6 g/dl (13.5-17.5); MEAN CORPUSCULAR HEMOGLOBIN 33.5 pg (27.0-33.0); MEAN CORPUSCULAR HGB CONC 33.3 g/dl (32.0-36.5); MEAN CORPUSCULAR VOLUME 100.7 fl (80.0-96.0); PLATELET COUNT, AUTOMATED 268 10^3/uL (150-450); RED BLOOD COUNT 4.06 10^6/uL (4.30-6.10); WHITE BLOOD COUNT 4.7 10^3/uL (4.0-10.0)
[2019-07-26 07:20] LABS: INR 0.97; PROTHROMBIN TIME 12.5 SECONDS (11.8-14.0)
[2019-07-26 07:40] LABS: ALBUMIN 2.8 GM/DL (3.2-5.2); ALT/SGPT 750 U/L (12-78); BILIRUBIN,TOTAL 1.9 MG/DL (0.2-1.0); BLOOD UREA NITROGEN 11 MG/DL (7-18); CALCIUM LEVEL 8.5 MG/DL (8.5-10.1); CARBON DIOXIDE LEVEL 31 MEQ/L (21-32); CHLORIDE LEVEL 109 MEQ/L (98-107); GLOMERULAR FILTRATION RATE > 60.0 (>60); GLUCOSE, FASTING 105 MG/DL (70-100); MAGNESIUM LEVEL 2.2 MG/DL (1.8-2.4); POTASSIUM SERUM 4.7 MEQ/L (3.5-5.1); SODIUM LEVEL 142 MEQ/L (136-145)
[2019-07-26] MEDS: FOLIC ACID 1 MG TAB PO SCH (09:14)
[2019-07-26] MEDS: MIRTAZAPINE 15 MG TAB PO SCH (09:15)
[2019-07-26] MEDS: THIAMINE 100 MG TAB PO SCH ×2 (09:15→20:44)
[2019-07-26] MEDS: MULTIVITAMINS/MINERALS THERAP 1 TAB PO SCH (09:15)
[2019-07-26] MEDS: LORATADINE 10 MG TAB PO SCH (09:15)
[2019-07-26] MEDS: HEPARIN SOD (PORCINE) 5000 UNITS/ML VIAL SC SCH ×2 (09:16→20:47)
--- NOTE | 2019-07-26 11:57 | REP ---
REASON FOR EXAM: Assess for pancreatic head mass. The prior CT examination of 07/24/2109 was reviewed. Gadolinium administered today 14 mL of ProHance. There is significant respiratory motion artifact obscuring the detail on all images. There is a fullness involving the pancreatic head, however, the pancreas enhances homogeneously and there is no evidence of intrapancreatic ductal dilatation. The imaged portion of the common bowel duct is not dilated. There is no discrete enhancing or nonenhancing measurable pancreatic mass. There is no abnormal peripancreatic lymphadenopathy. There is no abnormal peripancreatic enhancement. There is no abnormal peripancreatic fluid. There is no free fluid in the abdomen. The abdominal aorta and para-aortic regions are within normal limits. The kidneys are within normal limits with minimal tiny bilateral renal cortical cysts noted. The cortical and marrow signal seen throughout the imaged osseous structures is within normal limits. Limited evaluation of the gallbladder shows no abnormal gallbladder wall enhancement or pericholecystic fluid. No focal abnormal foci are seen within the gallbladder lumen. IMPRESSION: Pancreatic morphology as described above, however, the exam is limited by significant respiratory motion artifact. This limited exam shows no definite evidence of a discrete mass, however, a repeat examination should be obtained with elimination of all motion artifact. Electronically Signed by Ismael Mary DO 07/26/2019 12:02 P
[2019-07-26] MEDS: NS 1,000 ML IV SCH ×2 (13:48→20:47)
[2019-07-26 14:00] VITALS: BP 109/69
--- NOTE | 2019-07-26 15:25 | IPNPDOC ---
Text Note Date of Service The patient was seen on 07/26/19. NOTE Subjective: Patient complains of mild right upper quadrant pain. He has a good appetite. Denies fever, chills, nausea, vomiting, diarrhea or dysuria. Physical Examination General Exam: Positive: Alert, Cooperative Eye Exam: Positive: PERRLA, icterus ENT Exam: Positive: Atraumatic, Mucous membr. moist/pink Neck Exam: Positive: Supple; Negative: JVD Chest Exam: Positive: Clear to auscultation Heart Exam: Positive: Rate Normal Telemetry: Positive: No significant arrhythmia Abdomen Exam: Positive: Normal bowel sounds, tenderness over right upper quadrant, no rebound, no rigidity Extremity Exam: Negative: Clubbing, Cyanosis Skin Exam: Positive: Nl turgor and temperature, Other skin issue (yellowish) Neuro Exam: Positive: Normal Gait, Strength at 5/5 X4 ext Psych Exam: Positive: Mental status NL REASON FOR EXAM: Assess for pancreatic head mass. The prior CT examination of 07/24/2109 was reviewed. Gadolinium administered today 14 mL of ProHance. There is significant respiratory motion artifact obscuring the detail on all images. There is a fullness involving the pancreatic head, however, the pancreas enhances homogeneously and there is no evidence of intrapancreatic ductal dilatation. The imaged portion of the common bowel duct is not dilated. There is no discrete enhancing or nonenhancing measurable pancreatic mass. There is no abnormal peripancreatic lymphadenopathy. There is no abnormal peripancreatic enhancement. There is no abnormal peripancreatic fluid. There is no free fluid in the abdomen. The abdominal aorta and para-aortic regions are within normal limits. The kidneys are within normal limits with minimal tiny bilateral renal cortical cysts noted. The cortical and marrow signal seen throughout the imaged osseous structures is within normal limits. Limited evaluation of the gallbladder shows no abnormal gallbladder wall enhancement or pericholecystic fluid. No focal abnormal foci are seen within the gallbladder lumen. IMPRESSION: Pancreatic morphology as described above, however, the exam is limited by significant respiratory motion artifact. This limited exam shows no definite evidence of a discrete mass, however, a repeat examination should be obtained with elimination of all motion artifact. Assessment/Plan Patient is 34 years old male with past medical history of hepatitis C, drugs a buse, tobacco abuse, anxiety, depression presented hospital with right upper quadrant pain. Patient stated that right upper quadrant pain started around 7 days ago, 6 out of 10 associated with nausea and vomiting. Patient lost appetite during this week, he noticed that his skin became yellow. Problems (1) Right upper quadrant pain Problem Text: Differential diagnosis includes cholecystitis, reactivation of hepatitis C, hep A, Mavyret side effect Ultrasound of right upper quadrant did not show bile duct dilatation or significant inflammation of gallbladder Hepatitis panel, with hepatitis C viral load pending will continue to monitor PT/INR CT of abdomen showed questionably a poorly defined mass in the head of the pancreas measuring approximate 2.9 x 2.2 cm. There is no pancreatic duct dilatation. There is no pancreatitis. MRI of abdomen with contrast ordered MRI was done and it was negative for pancreatic mass IV fluid Pain management GI team follows him (2) Elevated LFTs Status: Acute Problem Text: Patient has transaminitis with hyperbilirubinemia Await hepatitis panel See above (3) Jaundice Status: Acute Problem Text: See above (4) Vomiting Status: Acute Problem Text: Zofran when necessary VS,Fishbone, I+O VS, Fishbone, I+O Laboratory Tests 07/26/19 06:51 Red Blood Count 4.06 L, Mean Corpuscular Volume 100.7 H, Mean Corpuscular Hemoglobin 33.5 H, Mean Corpuscular Hemoglobin Concent 33.3, Red Cell Distribution Width 13.9, Calcium Level 8.5, Aspartate Amino Transf (AST/SGOT) 215 H, Alanine Aminotransferase (ALT/SGPT) 750 H, Alkaline Phosphatase 508 H, Total Bilirubin 1.9 H, Total Protein 7.0, Albumin 2.8 L Vital Signs Date Time Temp Pulse Resp B/P (MAP) Pulse Ox O2 Delivery O2 Flow Rate FiO2 07/26/19 14:00 97.9 68 18 109/69 (82) 99 07/24/19 17:21 Room Air I&O- Last 24 Hours up to 6 AM 07/26/19 05:59 Intake Total 3220 ml Output Total 0 ml Balance 3220 ml NICK FARAH DO Jul 26, 2019 15:25
[2019-07-26 15:39] LABS: INR 0.94; PROTHROMBIN TIME 12.3 SECONDS (11.8-14.0)
[2019-07-26 21:00] VITALS: BP 110/69
[2019-07-26 22:00] VITALS: BP 110/69
[2019-07-26] MEDS: QUEtiapine FUMARATE 200 MG TAB PO SCH (22:46)
[2019-07-27 05:40] LABS: HEMATOCRIT 39.3 % (42.0-52.0); HEMOGLOBIN 13.2 g/dl (13.5-17.5); MEAN CORPUSCULAR HEMOGLOBIN 34.1 pg (27.0-33.0); MEAN CORPUSCULAR HGB CONC 33.6 g/dl (32.0-36.5); MEAN CORPUSCULAR VOLUME 101.6 fl (80.0-96.0); PLATELET COUNT, AUTOMATED 303 10^3/uL (150-450); RED BLOOD COUNT 3.87 10^6/uL (4.30-6.10); WHITE BLOOD COUNT 5.4 10^3/uL (4.0-10.0)
[2019-07-27 05:53] LABS: INR 0.97; PROTHROMBIN TIME 12.6 SECONDS (11.8-14.0)
[2019-07-27 06:00] VITALS: BP 100/62
[2019-07-27 06:11] LABS: ALBUMIN 2.6 GM/DL (3.2-5.2); ALT/SGPT 589 U/L (12-78); BILIRUBIN,TOTAL 1.3 MG/DL (0.2-1.0); BLOOD UREA NITROGEN 12 MG/DL (7-18); CALCIUM LEVEL 8.5 MG/DL (8.5-10.1); CARBON DIOXIDE LEVEL 31 MEQ/L (21-32); CHLORIDE LEVEL 107 MEQ/L (98-107); CREATININE FOR GFR 0.84 MG/DL (0.70-1.30); GLOMERULAR FILTRATION RATE > 60.0 (>60); GLUCOSE, FASTING 100 MG/DL (70-100); MAGNESIUM LEVEL 2.2 MG/DL (1.8-2.4); POTASSIUM SERUM 4.3 MEQ/L (3.5-5.1); SODIUM LEVEL 141 MEQ/L (136-145); TOTAL PROTEIN 6.5 GM/DL (6.4-8.2)
[2019-07-27 06:19] VITALS: BP 100/62
[2019-07-27] MEDS: NS 1,000 ML IV SCH (06:59)
[2019-07-27] MEDS: HEPARIN SOD (PORCINE) 5000 UNITS/ML VIAL SC SCH (08:55)
[2019-07-27] MEDS: LORATADINE 10 MG TAB PO SCH (08:55)
[2019-07-27] MEDS: MIRTAZAPINE 15 MG TAB PO SCH (08:55)
[2019-07-27] MEDS: FOLIC ACID 1 MG TAB PO SCH (08:56)
[2019-07-27] MEDS: MULTIVITAMINS/MINERALS THERAP 1 TAB PO SCH (08:56)
[2019-07-27] MEDS: THIAMINE 100 MG TAB PO SCH (08:56)
[2019-07-27] MEDS ORDERED: FAMOTIDINE 20 MG TAB PO SCH ×2 (09:00)
[2019-07-27] MEDS ORDERED: PILL CUTTER 1 EACH XX PRN (11:00)
[2019-07-27 11:26] LABS: HEPATITIS A ANTIBODY IGM POSITIVE (NEGATIVE); HEPATITIS B CORE ANTIBODY IGM NEGATIVE (NEGATIVE); HEPATITIS B SURFACE ANTIGEN NEGATIVE (NEGATIVE)
[2019-07-27 11:31] LABS: HEPATITIS C VIRUS ABY INDEX > 11.0 INDEX (<0.8)
--- NOTE | 2019-07-27 15:42 | DS.PDOC ---
Discharge Summary General Date of Admission Jul 24, 2019 at 14:47 Date of Discharge 07/27/19 Attending Physician: NICK FARAH DO Discharge Summary PROCEDURES PERFORMED DURING STAY: None ADMITTING DIAGNOSES: Right upper quadrant pain Elevated LFTs ) Jaundice Vomiting DISCHARGE DIAGNOSES: Right upper quadrant pain Elevated LFTs ) Jaundice Vomiting hep a COMPLICATIONS/CHIEF COMPLAINT: Vomiting. HISTORY OF PRESENT ILLNESS:34 years old male patient with history of IV drug use, (Quit and denies any recent use)), h/o hepatitis C, ( s/p therapy with Mavyret, completed therapy by June 15 with undetectable VL post therapy), active smoker and alcohol use, anxiety, depression presented hospital for symptoms of dark coloured urine for few days along with nausea, vomiting and upper abdominal pain. GI was consulted for abnormal liver panel. Patient reports his symptoms started with diarrhea for 1-2 weeks and then followed with acute onset nausea and vomiting, and unable to tolerate any oral intake, since last week Saturday and lasted till Saturday. He started noticing dark, cola colored urine for the past few days and He also reports having upper abdominal pain for a long time and attributes to his acid reflux. Patient also reports sore throat for which he was given antibiotic within last two week by his PCP. Patient also reports heavy alcohol use in past but recently decreased his alcohol intake. HOSPITAL COURSE: During hospital stay the following issue addressed Right upper quadrant pain Patient was tested positive for hepatitis A Ultrasound of right upper quadrant did not show bile duct dilatation or significant inflammation of gallbladder CT of abdomen showed questionably a poorly defined mass in the head of the pancreas measuring approximate 2.9 x 2.2 cm. There is no pancreatic duct dilatation. There is no pancreatitis. MRI was done and it was negative for pancreatic mass IV fluid Pain management GI team follows him (2) Elevated LFTs Patient has transaminitis with hyperbilirubinemia Secondary to hep A (3) Jaundice Status: Acute Problem Text: See above (4) Vomiting Status: Acute Problem Text: Zofran when necessary DISCHARGE MEDICATIONS: Please see below. ALLERGIES: Please see below. PHYSICAL EXAMINATION ON DISCHARGE: VITAL SIGNS: Please see below. Vitals: reviewed General: Alert and oriented x 3, not in distress HEENT: No pallor, Mild scleral icterus. Normal oropharynx, NO cervical lymph nodes. Chest: symmetric with bilateral clear air entry, CVS: S1, S2 heard, normal, no murmurs . Abdomen: non-distended, no surgical scars, soft, Minimal tender, no palpable masses, normal bowel sounds heard. Extremities: no pedal edema, pulses palpable. ELECTRICAL DESIGNER: no focal motor or sensory deficits. Moves all extremities Skin: no rash. LABORATORY DATA: Please see below. IMAGING: Assess for pancreatic head mass. The prior CT examination of 07/24/2109 was reviewed. Gadolinium administered today 14 mL of ProHance. There is significant respiratory motion artifact obscuring the detail on all images. There is a fullness involving the pancreatic head, however, the pancreas enhances homogeneously and there is no evidence of intrapancreatic ductal dilatation. The imaged portion of the common bowel duct is not dilated. There is no discrete enhancing or nonenhancing measurable pancreatic mass. There is no abnormal peripancreatic lymphadenopathy. There is no abnormal peripancreatic enhancement. There is no abnormal peripancreatic fluid. There is no free fluid in the abdomen. The abdominal aorta and para-aortic regions are within normal limits. The kidneys are within normal limits with minimal tiny bilateral renal cortical cysts noted. The cortical and marrow signal seen throughout the imaged osseous structures is within normal limits. Limited evaluation of the gallbladder shows no abnormal gallbladder wall enhancement or pericholecystic fluid. No focal abnormal foci are seen within the gallbladder lumen. IMPRESSION: Pancreatic morphology as described above, however, the exam is limited by significant respiratory motion artifact. This limited exam shows no definite evidence of a discrete mass, however, a repeat examination should be obtained with elimination of all motion artifact. PROGNOSIS: Favorable ACTIVITY: As tolerated DIET: Regular DISCHARGE PLAN: Home DISPOSITION: 01 Home, Self-Care. DISCHARGE INSTRUCTIONS: Avoid alcohol, smoking. No heavy exercise for next 3 weeks ITEMS TO FOLLOWUP ON ON OUTPATIENT: Follow-up with PCP in one week and seconds inspector in 2 weeks DISCHARGE CONDITION: Stable TIME SPENT ON DISCHARGE: Greater than 25 minutes. Vital Signs/I&Os Vital Signs Date Time Temp Pulse Resp B/P (MAP) Pulse Ox O2 Delivery O2 Flow Rate FiO2 07/27/19 06:19 58 100/62 07/27/19 06:00 97.6 18 98 07/24/19 17:21 Room Air I&O- Last 24 Hours up to 6 AM 07/27/19 06:00 Intake Total 2520 ml Output Total 0 ml Balance 2520 ml Laboratory Data Labs 24H Laboratory Tests 2 07/27/19 05:23: Nucleated Red Blood Cells % (auto) 0.0, Prothrombin Time 12.6, Prothromb Time International Ratio 0.97, Anion Gap 3L, Glomerular Filtration Rate > 60.0, Blood Urea Nitrogen 12, Creatinine 0.84, Sodium Level 141, Potassium Level 4.3, Chlor vik Level 107, Carbon Dioxide Level 31, Calcium Level 8.5, Aspartate Amino Transf (AST/SGOT) 147H, Alanine Aminotransferase (ALT/SGPT) 589H, Alkaline Phosphatase 427H, Total Bilirubin 1.3H, Total Protein 6.5, Albumin 2.6L, Magnesium Level 2.2, Albumin/Globulin Ratio 0.67L CBC/BMP Laboratory Tests 07/27/19 05:23 Red Blood Count 3.87 L, Mean Corpuscular Volume 101.6 H, Mean Corpuscular Hemoglobin 34.1 H, Mean Corpuscular Hemoglobin Concent 33.6, Red Cell Distribution Width 14.2, Calcium Level 8.5, Aspartate Amino Transf (AST/SGOT) 147 H, Alanine Aminotransferase (ALT/SGPT) 589 H, Alkaline Phosphatase 427 H, Total Bilirubin 1.3 H, Total Protein 6.5, Albumin 2.6 L Microbiology Microbiology 07/24/19 Blood Culture - Preliminary, Resulted No Growth after 72 hours. All specime... 07/24/19 Blood Culture - Preliminary, Resulted No Growth after 72 hours. All specime... Discharge Medications Scheduled Loratadine (Loratadine) 10 Mg Tablet, 10 MG PO DAILY, (Reported) Mirtazapine (Remeron) 15 Mg Tablet, 15 MG PO DAILY, (Reported) Quetiapine Fumarate (Quetiapine Fumarate) 200 Mg Tablet, 200 MG PO QHS, (Reported) Scheduled PRN Albuterol Sulfate (Proair Hfa) 8.5 Gm Hfa.aer.ad, 2 PUFF INH QID PRN for SHORTNESS OF BREATH, (Reported) Epinephrine (Epipen 2-Jim) 0.3 Mg/0.3 Ml Auto.injct, 1 SYRINGE IM ONCE PRN for ANAPHYLAXIS, (Reported) Ondansetron HCl (Ondansetron HCl) 4 Mg Tablet, 4 MG PO Q6H PRN for NAUSEA OR VOMITING, (Reported) Allergies Coded Allergies: bee venom protein (honey bee) (Verified Allergy, Severe, ANAPHYLAXIS, 07/24/19) NICK FARAH DO Jul 27, 2019 15:42
[2019-07-29 14:07] LABS: HEPATITIS C QUANTITATION HCV Not Detected IU/mL (.)
== END 2019-07-27 15:20 | disposition home or self-care (01) ==
LOC: M ED 10:37 → M ED INP 14:47 → M MS5PR 17:36
PROVIDERS: ADMIT Internal Medicine; ATTEND Internal Medicine
DX: B15.9 Hepatitis A without hepatic coma (principal); R17 Unspecified jaundice; R74.0 Nonspecific elevation of levels of transaminase and lactic acid dehydrogenase [LDH]; E80.6 Other disorders of bilirubin metabolism; F17.200 Nicotine dependence, unspecified, uncomplicated; F41.9 Anxiety disorder, unspecified; Z79.899 Other long term (current) drug therapy; Z91.030 Bee allergy status; F32.9 Major depressive disorder, single episode, unspecified

== ENCOUNTER → 2019-08-10 | Outpatient (REF) | payer OTHER, MEDICAID ==
[~2019-08-10] MED LIST changes: +EPIP0.3I2 IM; +LORA-674 PO; +ONDA4TAB5 PO; +PROAAER10 INH; +QUET200T2 PO; +REME15TA PO
== END ==
LOC: M LAB REF 19:14
PROVIDERS: ATTEND Family Medicine
DX: J02.9 Acute pharyngitis, unspecified (principal)

== ENCOUNTER → 2019-08-19 | Outpatient (CLI) | payer OTHER ==
[2019-08-19 14:06] LABS: BASO # 0.1 10^3/uL (0.0-0.2); BASO % 0.7 % (0.0-1.0); EOS # 0.2 10^3/uL (0.0-0.5); EOS % 2.2 % (0.0-3.0); HEMATOCRIT 42.4 % (42.0-52.0); HEMOGLOBIN 13.8 g/dl (13.5-17.5); LYMPH # 3.8 10^3/uL (1.5-5.0); LYMPH % 40.3 % (24.0-44.0); MEAN CORPUSCULAR HEMOGLOBIN 33.3 pg (27.0-33.0); MEAN CORPUSCULAR HGB CONC 32.5 g/dl (32.0-36.5); MEAN CORPUSCULAR VOLUME 102.4 fl (80.0-96.0); MONO # 0.6 10^3/uL (0.0-0.8); MONO % 6.1 % (0.0-5.0); NEUTROPHILS # 4.6 10^3/uL (1.5-8.5); NEUTROPHILS % 48.5 % (36.0-66.0); PLATELET COUNT, AUTOMATED 422 10^3/uL (150-450); RED BLOOD COUNT 4.14 10^6/uL (4.30-6.10); WHITE BLOOD COUNT 9.4 10^3/uL (4.0-10.0)
[2019-08-19 14:31] LABS: ALBUMIN 3.4 GM/DL (3.2-5.2); ALT/SGPT 32 U/L (12-78); BILIRUBIN,DIRECT 0.3 MG/DL (0.0-0.2); BILIRUBIN,TOTAL 0.5 MG/DL (0.2-1.0); BLOOD UREA NITROGEN 10 MG/DL (7-18); CREATININE FOR GFR 0.91 MG/DL (0.70-1.30); GLOMERULAR FILTRATION RATE > 60.0 (>60); TOTAL PROTEIN 7.7 GM/DL (6.4-8.2)
[2019-08-21 08:10] LABS: ANTI DOUBLE STRAND-DNA AB 1 IU/mL (0-9); ANTI-MITOCHONDRIAL ANTIBODY <20.0 Units (0.0-20.0); ANTI-SMOOTH MUSCLE ANTIBODY 13 Units (0-19); ANTINUCLEAR ANTIBODIES DIRECT Positive (Negative); HEPATITIS A IgG TOTAL Positive (Negative); LIVER-KIDNEY MICROSOMAL ABY <20.1 Units (0.0-20.0); RNP ANTIBODIES <0.2 AI (0.0-0.9); SJOGREN'S ANTI SS-A <0.2 AI (0.0-0.9); SJOGREN'S ANTI SS-B <0.2 AI (0.0-0.9); SMITH ANTIBODIES <0.2 AI (0.0-0.9)
== END ==
LOC: M LAB 12:38
PROVIDERS: ATTEND Internal Medicine Gastroenterology
DX: R10.13 Epigastric pain (principal); B15.9 Hepatitis A without hepatic coma

== ENCOUNTER → 2019-11-24 | Outpatient (CLI) | payer OTHER ==
[~2019-11-24] MED LIST changes: +ONDA-83 PO; -ONDA4TAB5 PO; +SERO1TAB2 PO; +SERO1TAB3 PO
--- NOTE | 2019-11-24 15:54 | REP ---
Clinical: Trauma. Technique: AP, lateral, bilateral oblique views left hand . Findings: The osseous structures and joint spaces are intact and normal. There is no evidence for acute fracture or dislocation. Surrounding soft tissues are unremarkable. No subcutaneous emphysema or radiodense foreign body. Impression: No acute fracture or dislocation. Electronically Signed by Arnold Warren MD 11/24/2019 03:46 P
== END ==
LOC: M WUC 15:24
PROVIDERS: ATTEND Physician Assistant
DX: S60.222A Contusion of left hand, initial encounter (principal); Y92.9 Unspecified place or not applicable; Y93.9 Activity, unspecified; Y99.9 Unspecified external cause status

== ENCOUNTER 2020-08-06 13:13 | Emergency (ER) | payer OTHER ==
[~2020-08-06] VITALS: Ht 190.5 cm; Wt 75.6 kg
[2020-08-06 13:15] VITALS: BP 112/62
[2020-08-06] MEDS ORDERED: GABA600T4 (13:23)
--- NOTE | 2020-08-06 13:48 | REP ---
INDICATION: pt punched wall COMPARISON: None TECHNIQUE: AP, lateral, bilateral oblique views right wrist. FINDINGS: The carpal bones, surrounding osseous structures, soft tissues, and joint spaces are normal. There is no evidence for acute fracture or dislocation. No subcutaneous emphysema or radiodense foreign body. IMPRESSION: Normal wrist series. No acute fracture or dislocation. <Electronically signed by Arnold Warren > 08/06/20 [id number]
--- NOTE | 2020-08-06 13:49 | REP ---
INDICATION: pt punched wall COMPARISON: None. TECHNIQUE: AP, lateral, bilateral oblique views right hand. FINDINGS: The osseous structures and joint spaces are intact and normal. There is no evidence for acute fracture or dislocation. Surrounding soft tissues are unremarkable. No subcutaneous emphysema or radiodense foreign body. IMPRESSION: . No acute fracture or dislocation. <Electronically signed by Arnold Warren > 08/06/20 [id number]
== END 2020-08-06 14:07 | disposition home or self-care (01) ==
LOC: M ED 13:13
DX: S63.501A Unspecified sprain of right wrist, initial encounter (principal); X58.XXXA Exposure to other specified factors, initial encounter; Y92.018 Other place in single-family (private) house as the place of occurrence of the external cause; B19.20 Unspecified viral hepatitis C without hepatic coma; Z79.899 Other long term (current) drug therapy; Z91.030 Bee allergy status; F17.210 Nicotine dependence, cigarettes, uncomplicated

== ENCOUNTER → 2020-12-05 | Outpatient (CLI) | payer OTHER ==
[~2020-12-05] MED LIST changes: +GABA600T4; +MIRT-62 PO; -REME15TA PO
[2020-12-05 14:01] LABS: BASO % 0.6 % (0.0-1.0); EOS # 0.1 10^3/uL (0.0-0.5); EOS % 1.3 % (0.0-3.0); HEMATOCRIT 39.4 % (42.0-52.0); HEMOGLOBIN 12.9 g/dl (13.5-17.5); LYMPH # 2.8 10^3/uL (1.5-5.0); LYMPH % 40.9 % (24.0-44.0); MEAN CORPUSCULAR HEMOGLOBIN 32.6 pg (27.0-33.0); MEAN CORPUSCULAR HGB CONC 32.7 g/dl (32.0-36.5); MEAN CORPUSCULAR VOLUME 99.5 fl (80.0-96.0); MONO # 0.3 10^3/uL (0.0-0.8); MONO % 4.4 % (2.0-8.0); NEUTROPHILS # 3.6 10^3/uL (1.5-8.5); NEUTROPHILS % 52.5 % (36.0-66.0); PLATELET COUNT, AUTOMATED 242 10^3/uL (150-450); RED BLOOD COUNT 3.96 10^6/uL (4.30-6.10); WHITE BLOOD COUNT 6.8 10^3/uL (4.0-10.0)
[2020-12-05 14:39] LABS: ALBUMIN 4.1 GM/DL (3.2-5.2); ALT/SGPT 20 U/L (12-78); BILIRUBIN,DIRECT 0.1 MG/DL (0.0-0.2); BILIRUBIN,TOTAL 0.4 MG/DL (0.2-1.0); BLOOD UREA NITROGEN 19 MG/DL (7-18); CREATININE FOR GFR 0.86 MG/DL (0.70-1.30); GLOMERULAR FILTRATION RATE > 60.0 (>60); TOTAL PROTEIN 6.8 GM/DL (6.4-8.2)
[2020-12-06 23:07] LABS: HEPATITIS C QUANTITATION HCV Not Detected IU/mL (.)
== END ==
LOC: M LAB 12:41
PROVIDERS: ATTEND Internal Medicine Gastroenterology
DX: R10.13 Epigastric pain (principal); R63.4 Abnormal weight loss

== ENCOUNTER → 2020-12-06 | Outpatient (REF) | payer OTHER | LOC: M LAB REF 14:07 | PROVIDERS: ATTEND Internal Medicine Gastroenterology | DX: R10.13 Epigastric pain (principal) ==

== ENCOUNTER → 2021-01-05 | Outpatient (CLI) | payer OTHER ==
[~2021-01-05] MED LIST changes: +ALBU83IN INH; +CETI10CH PO; +FAMO20TA PO; +VITMTA PO
== END ==
LOC: M LABSMTC 11:16
PROVIDERS: ATTEND Anesthesiology
DX: Z01.812 Encounter for preprocedural laboratory examination (principal); Z20.822 Contact with and (suspected) exposure to COVID-19

== ENCOUNTER 2021-01-10 12:06 | Day surgery (SDC) | payer OTHER ==
[~2021-01-10] VITALS: Ht 190.5 cm; Wt 70.3 kg
[~2021-01-10 12:06] MED LIST changes: +LIDOCAINE 2% 100MG/5ML SDV (FOR ANES.) As Ordered ONE; +NS 1,000 ML IV ONE; +ePHEDrine SULFATE 25 MG/5 ML(5MG/ML) SYRINGE As Ordered ONE; +propofoL 500 MG/50 ML VIAL As Ordered ONE
[2021-01-10] MEDS ORDERED: ALBUTEROL 6.7GM INHALER **FOR ANES. CART/OMNICELL ONLY As Ordered ONE (12:53)
[2021-01-10] MEDS ORDERED: propofoL 200 MG/20 ML VIAL As Ordered ONE ×2 (13:12→13:59)
--- NOTE | 2021-01-10 13:48 | ROOR ---
Patient Name: Bharathi Hart Procedure Date: 01/10/2021 12:51 PM Date of : 1985 Age: 35 Room: [facility] Gender: Male Note Status: Finalized Procedure: Upper GI endoscopy Indications: Dyspepsia, Hepatitis rule out esophageal varices Providers: Magdi Sharp MD Referring MD: Randall RAMOS MD Requesting Provider: Medicines: Monitored Anesthesia Care Complications: No immediate complications. Procedure: Pre-Anesthesia Assessment: - Prior to the procedure, a History and Physical was performed, and patient medications and allergies were reviewed. The patient is competent. The risks and benefits of the procedure and the sedation options and risks were discussed with the patient. All questions were answered and informed consent was obtained. Patient identification and proposed procedure were verified by the physician, the nurse and the anesthesiologist in the procedure room. Mental Status Examination: alert and oriented. Airway Examination: normal oropharyngeal airway and neck mobility. Respiratory Examination: clear to auscultation. CV Examination: normal. Prophylactic Antibiotics: The patient does not require prophylactic antibiotics. Prior Anticoagulants: The patient has taken no previous anticoagulant or antiplatelet agents. ASA Grade Assessment: II - A patient with mild systemic disease. After reviewing the risks and benefits, the patient was deemed in satisfactory condition to undergo the procedure. The anesthesia plan was to use monitored anesthesia care (MAC). Immediately prior to administration of medications, the patient was re-assessed for adequacy to receive sedatives. The heart rate, respiratory rate, oxygen saturations, blood pressure, adequacy of pulmonary ventilation, and response to care were monitored throughout the procedure. The physical status of the patient was re-assessed after the procedure. The Endoscope was introduced through the mouth, and advanced to the second part of duodenum. The upper GI endoscopy was accomplished without difficulty. The patient tolerated the procedure well. Findings: The examined esophagus was normal. Scattered moderate inflammation characterized by congestion (edema), erythema and granularity was found in the gastric antrum. Biopsies were taken with a cold forceps for Helicobacter pylori testing. Verification of patient identification for the specimen was done by the physician and nurse using the patient's name, date and medical record number. Estimated blood loss was minimal. The duodenal bulb and second portion of the duodenum were normal. Biopsies for histology were taken with a cold forceps for evaluation of celiac disease. Impression: - Normal esophagus. - Gastritis. Biopsied. - Normal duodenal bulb and second portion of the duodenum. Biopsied. Recommendation: - Patient has a contact number available for emergencies. The signs and symptoms of potential delayed complications were discussed with the patient. Return to normal activities tomorrow. Written discharge instructions were provided to the patient. - High fiber diet. - Continue present medications. - Await pathology results. - Follow an antireflux regimen. - Telephone GI clinic for pathology results in 2 weeks. - Return to primary care physician. Procedure Code(s): --- Professional --- 96949, Esophagogastroduodenoscopy, flexible, transoral; with biopsy, single or multiple Diagnosis Code(s): --- Professional --- K29.70, Gastritis, unspecified, without bleeding R10.13, Epigastric pain K75.9, Inflammatory liver disease, unspecified CPT copyright 2019 [employer]. All rights reserved. The codes documented in this report are preliminary and upon certified medical records coder review may be revised to meet current compliance requirements. Magdi Sharp MD Magdi Sharp MD 01/10/2021 1:48:33 PM Electronically signed by Magdi Sharp MD Number of Addenda: 0 Note Initiated On: 01/10/2021 12:51 PM Estimated Blood Loss: Estimated blood loss was minimal.
[2021-01-10 14:07] VITALS: BP 117/65
--- NOTE | 2021-01-10 14:20 | ROOR ---
Patient Name: Bharathi Hart Procedure Date: 01/10/2021 12:54 PM Date of : 1985 Age: 35 Room: [facility] Gender: Male Note Status: Finalized Procedure: Colonoscopy Indications: Chronic diarrhea Providers: Magdi Sharp MD Referring MD: Randall RAMOS MD Requesting Provider: Medicines: Monitored Anesthesia Care Complications: No immediate complications. Procedure: Pre-Anesthesia Assessment: - Prior to the procedure, a History and Physical was performed, and patient medications and allergies were reviewed. The patient is competent. The risks and benefits of the procedure and the sedation options and risks were discussed with the patient. All questions were answered and informed consent was obtained. Patient identification and proposed procedure were verified by the physician, the nurse and the anesthesiologist in the procedure room. Mental Status Examination: alert and oriented. Airway Examination: normal oropharyngeal airway and neck mobility. Respiratory Examination: clear to auscultation. CV Examination: normal. Prophylactic Antibiotics: The patient does not require prophylactic antibiotics. Prior Anticoagulants: The patient has taken no previous anticoagulant or antiplatelet agents. ASA Grade Assessment: II - A patient with mild systemic disease. After reviewing the risks and benefits, the patient was deemed in satisfactory condition to undergo the procedure. The anesthesia plan was to use monitored anesthesia care (MAC). Immediately prior to administration of medications, the patient was re-assessed for adequacy to receive sedatives. The heart rate, respiratory rate, oxygen saturations, blood pressure, adequacy of pulmonary ventilation, and response to care were monitored throughout the procedure. The physical status of the patient was re-assessed after the procedure. The Colonoscope was introduced through the anus and advanced to the terminal ileum, with identification of the appendiceal orifice and IC valve. The colonoscopy was performed without difficulty. The patient tolerated the procedure well. The quality of the bowel preparation was good. Scope insertion time was 2 minutes. Scope withdrawal time was 8 minutes. The total duration of the procedure was 10 minutes. Findings: The perianal and digital rectal examinations were normal. The terminal ileum appeared normal. Normal mucosa was found in the entire colon. Biopsies for histology were taken with a cold forceps from the right colon, left colon and rectosigmoid colon for evaluation of microscopic colitis. Verification of patient identification for the specimen was done by the physician and nurse using the patient's name, date and medical record number. Estimated blood loss was minimal. Non-bleeding external and internal hemorrhoids were found during retroflexion. The hemorrhoids were medium-sized. Impression: - The examined portion of the ileum was normal. - Normal mucosa in the entire examined colon. Biopsied. - Non-bleeding external and internal hemorrhoids. Recommendation: - Patient has a contact number available for emergencies. The signs and symptoms of potential delayed complications were discussed with the patient. Return to normal activities tomorrow. Written discharge instructions were provided to the patient. - High fiber diet. - Continue present medications. - Await pathology results. - Repeat colonoscopy at age 51 for screening purposes. - Use fiber, for example Citrucel, Fibercon, Konsyl or Metamucil. - Telephone GI clinic for pathology results in 2 weeks. - Return to primary care physician. Procedure Code(s): --- Professional --- 68470, Colonoscopy, flexible; with biopsy, single or multiple Diagnosis Code(s): --- Professional --- K64.8, Other hemorrhoids K52.9, Noninfective gastroenteritis and colitis, unspecified CPT copyright 2019 [employer]. All rights reserved. The codes documented in this report are preliminary and upon naval police coxswain review may be revised to meet current compliance requirements. Magdi Sharp MD Magdi Sharp MD 01/10/2021 2:20:01 PM Electronically signed by Magdi Sharp MD Number of Addenda: 0 Note Initiated On: 01/10/2021 12:54 PM Estimated Blood Loss: Estimated blood loss was minimal.
== END 2021-01-10 14:10 | disposition home or self-care (01) ==
LOC: M OPP 12:06
PROVIDERS: ATTEND Internal Medicine Gastroenterology
DX: K52.9 Noninfective gastroenteritis and colitis, unspecified (principal); K64.8 Other hemorrhoids; K29.70 Gastritis, unspecified, without bleeding; K63.5 Polyp of colon; R10.13 Epigastric pain; K75.9 Inflammatory liver disease, unspecified; F17.210 Nicotine dependence, cigarettes, uncomplicated; Z79.899 Other long term (current) drug therapy; Z88.6 Allergy status to analgesic agent; Z88.8 Allergy status to other drugs, medicaments and biological substances; Z91.030 Bee allergy status

== ENCOUNTER 2021-01-13 13:22 | Emergency (ER) | payer OTHER ==
[~2021-01-13] VITALS: Ht 190.5 cm; Wt 74.3 kg
[~2021-01-13 13:22] MED LIST changes: -LIDOCAINE 2% 100MG/5ML SDV (FOR ANES.) As Ordered ONE; -NS 1,000 ML IV ONE; -ePHEDrine SULFATE 25 MG/5 ML(5MG/ML) SYRINGE As Ordered ONE; -propofoL 500 MG/50 ML VIAL As Ordered ONE
--- NOTE | 2021-01-13 13:59 | REP ---
INDICATION: trauma/crush injury. COMPARISON: Left hand 08/06/2020. TECHNIQUE: Four views FINDINGS: Mildly comminuted distal tuft fracture of the distal phalanx of the 2nd digit. Soft tissue injury noted. May be some subcutaneous air and I cannot exclude open fracture. No radiopaque foreign body the IP joints, other phalanges and adjacent digits with air MCPs all unremarkable. IMPRESSION: 1. Mildly comminuted distal tuft fracture distal phalanx of the 2nd digit with some subcutaneous air. Cannot exclude an open fracture on the basis of this radiograph. No radiopaque foreign body. <Electronically signed by Roger Heller > 01/13/21 [id number]
[2021-01-13] MEDS ORDERED: LIDOCAINE 2% MDV 20ML VIAL SC ONE (14:40)
[2021-01-13] MEDS ORDERED: CEPH500C PO (15:21)
[2021-01-13 15:24] VITALS: BP 141/69
[2021-01-13] MEDS ORDERED: CEPHALEXIN 500 MG CAP PO ONE (15:25)
== END 2021-01-13 15:33 | disposition home or self-care (01) ==
LOC: M ED 13:22
DX: S62.601B Fracture of unspecified phalanx of left index finger, initial encounter for open fracture (principal); W27.8XXA Contact with other nonpowered hand tool, initial encounter; Y92.009 Unspecified place in unspecified non-institutional (private) residence as the place of occurrence of the external cause; Y93.9 Activity, unspecified; Y99.9 Unspecified external cause status; Z88.6 Allergy status to analgesic agent; Z88.8 Allergy status to other drugs, medicaments and biological substances; Z91.030 Bee allergy status

== ENCOUNTER 2022-07-23 10:02 | Emergency (ER) | payer OTHER ==
[~2022-07-23] VITALS: Ht 190.5 cm; Wt 66.8 kg
[~2022-07-23 10:02] MED LIST changes: +ALBU2.5V10 INH; -ALBU83IN INH; +CEPH500C PO; +POLYSOL OP
[2022-07-23] MEDS ORDERED: KETOROLAC 60MG 2ML VIAL IM ONE (11:25)
[2022-07-23 11:36] LABS: APPEARANCE, URINE MANUAL CLEAR (CLEAR); COLOR, URINE MANUAL YELLOW (YELLOW); GLUCOSE, URINE (UA) MANUAL NEGATIVE (NEGATIVE); KETONE, URINE MANUAL NEGATIVE (NEGATIVE); PROTEIN, URINE MANUAL NEGATIVE (NEGATIVE); SPECIFIC GRAVITY,URINE MANUAL 1.015 (1.002-1.035); UROBILINOGEN, URINE MANUAL NORMAL (NORMAL)
[2022-07-23 11:37] LABS: BLOOD URINE MANUAL NEGATIVE (NEGATIVE); LEUKOCYTE ESTERASE, URINE MAN NEGATIVE (NEGATIVE); NITRITE, URINE MANUAL NEGATIVE (NEGATIVE)
[2022-07-23] MEDS ORDERED: KETO10TAB PO (12:36)
[2022-07-23 12:44] VITALS: BP 118/64
== END 2022-07-23 12:45 | disposition home or self-care (01) ==
LOC: M ED 10:02
DX: S39.93XA Unspecified injury of pelvis, initial encounter (principal); W01.198A Fall on same level from slipping, tripping and stumbling with subsequent striking against other object, initial encounter; B18.2 Chronic viral hepatitis C; F17.200 Nicotine dependence, unspecified, uncomplicated; Z88.6 Allergy status to analgesic agent; Z88.8 Allergy status to other drugs, medicaments and biological substances; Z91.030 Bee allergy status
CPT/HCPCS: 72190; 81002; 96372; 99283; J1885

== ENCOUNTER → 2022-10-17 | Outpatient (REF) | payer OTHER ==
[~2022-10-17] MED LIST changes: +KETO10TAB PO
== END ==
LOC: M LAB REF 12:32
PROVIDERS: ATTEND Nurse Practitioner Family
DX: R19.7 Diarrhea, unspecified (principal)

== ENCOUNTER → 2023-10-09 | Outpatient (CLI) | payer OTHER ==
[~2023-10-09] MED LIST changes: +LORA-1041 PO; -LORA-674 PO; -MIRT-62 PO; +MIRT-88 PO
== END ==
LOC: M CARPUL 12:56
PROVIDERS: ATTEND Physician Assistant Medical
DX: R06.89 Other abnormalities of breathing (principal)

== ENCOUNTER → 2024-04-06 | Outpatient (CLI) | payer OTHER ==
[2024-04-06 18:12] LABS: BASO % 0.4 % (0.0-1.0); EOS # 0.1 10^3/uL (0.0-0.5); HEMATOCRIT 44.8 % (42.0-52.0); HEMOGLOBIN 14.6 g/dl (13.5-17.5); LYMPH # 2.5 10^3/uL (1.5-5.0); LYMPH % 34.8 % (24.0-44.0); MEAN CORPUSCULAR HGB CONC 32.6 g/dl (32.0-36.5); MEAN CORPUSCULAR VOLUME 104.4 fl (80.0-96.0); MONO # 0.5 10^3/uL (0.0-0.8); MONO % 6.9 % (2.0-8.0); NEUTROPHILS % 55.6 % (36.0-66.0); PLATELET COUNT, AUTOMATED 267 10^3/uL (150-450); RED BLOOD COUNT 4.29 10^6/uL (4.30-6.10); WHITE BLOOD COUNT 7.1 10^3/uL (4.0-10.0)
[2024-04-06 18:39] LABS: ALBUMIN 3.9 G/DL (3.2-5.2); ALKALINE PHOSPHATASE 120 U/L (46-116); ALT/SGPT 17 U/L (7.0-40); AST/SGOT 10 U/L (<34); BILIRUBIN,TOTAL 0.5 MG/DL (0.3-1.2); BLOOD UREA NITROGEN 23 MG/DL (9-23); CALCIUM LEVEL 9.7 MG/DL (8.5-10.1); CARBON DIOXIDE LEVEL 28 MMOL/L (20-31); CHLORIDE LEVEL 107 MMOL/L (98-107); CHOLESTEROL LEVEL 180 MG/DL (<200); CHOLESTEROL RISK RATIO 2.34 (<5); CREATININE FOR GFR 0.81 MG/DL (0.70-1.30); GLOMERULAR FILTRATION RATE > 60.0 (>60); GLUCOSE, FASTING 98 MG/DL (60-100); HDL CHOLESTEROL 76.6 MG/DL (>40); LDL CHOLESTEROL 89.6 MG/DL (<100); NON-HDL-C 103.4 MG/DL; POTASSIUM SERUM 4.7 MMOL/L (3.5-5.1); SODIUM LEVEL 140 MMOL/L (136-145); TOTAL 25(OH) VITAMIN D 35.9 NG/ML (20.0-100.0); TOTAL PROTEIN 6.6 G/DL (5.7-8.2); TRIGLYCERIDES LEVEL 69 MG/DL (<150)
== END ==
LOC: M WUC 10:24
PROVIDERS: ATTEND Physician Assistant Medical
DX: E55.9 Vitamin D deficiency, unspecified (principal); E78.2 Mixed hyperlipidemia; Z13.6 Encounter for screening for cardiovascular disorders

== ENCOUNTER → 2024-05-14 | Outpatient (CLI) | payer OTHER | LOC: M PLAIMG 09:07 | PROVIDERS: ATTEND Physician Assistant Medical | DX: R05.3 Chronic cough (principal) ==

== ENCOUNTER → 2024-09-07 | Outpatient (CLI) | payer OTHER ==
[~2024-09-07] MED LIST changes: +GABA-1490; -GABA600T4
[2024-09-07 12:32] LABS: BASO % 0.5 % (0.0-1.0); EOS # 0.2 10^3/uL (0.0-0.5); EOS % 2.6 % (0.0-3.0); HEMATOCRIT 42.7 % (42.0-52.0); HEMOGLOBIN 14.5 g/dl (13.5-17.5); LYMPH # 2.3 10^3/uL (1.5-5.0); LYMPH % 39.2 % (24.0-44.0); MEAN CORPUSCULAR HEMOGLOBIN 34.1 pg (27.0-33.0); MEAN CORPUSCULAR VOLUME 100.5 fl (80.0-96.0); MONO # 0.3 10^3/uL (0.0-0.8); MONO % 5.9 % (2.0-8.0); NEUTROPHILS % 51.6 % (36.0-66.0); PLATELET COUNT, AUTOMATED 272 10^3/uL (150-450); RED BLOOD COUNT 4.25 10^6/uL (4.30-6.10); WHITE BLOOD COUNT 5.8 10^3/uL (4.0-10.0)
[2024-09-07 12:52] LABS: ALBUMIN 3.8 G/DL (3.2-5.2); ALKALINE PHOSPHATASE 110 U/L (40-129); ALT/SGPT 12 U/L (7.0-40); AST/SGOT 9 U/L (<34); BILIRUBIN,TOTAL 0.3 MG/DL (0.3-1.2); BLOOD UREA NITROGEN 19 MG/DL (9-23); CALCIUM LEVEL 9.4 MG/DL (8.5-10.1); CARBON DIOXIDE LEVEL 28 MMOL/L (20-31); CHLORIDE LEVEL 107 MMOL/L (98-107); CHOLESTEROL LEVEL 169 MG/DL (<200); CHOLESTEROL RISK RATIO 2.84 (<5); CREATININE FOR GFR 0.82 MG/DL (0.70-1.30); GLOMERULAR FILTRATION RATE > 60.0 (>60); GLUCOSE, FASTING 107 MG/DL (60-100); HDL CHOLESTEROL 59.4 MG/DL (>40); LDL CHOLESTEROL 94.4 MG/DL (<100); NON-HDL-C 109.6 MG/DL; POTASSIUM SERUM 4.6 MMOL/L (3.5-5.1); SODIUM LEVEL 141 MMOL/L (136-145); TOTAL PROTEIN 6.9 G/DL (5.7-8.2); TRIGLYCERIDES LEVEL 76 MG/DL (<150)
[2024-09-07 12:53] LABS: TOTAL 25(OH) VITAMIN D 36.4 NG/ML (20.0-100.0)
== END ==
LOC: M WUC 08:53
PROVIDERS: ATTEND Physician Assistant Medical
DX: Z13.6 Encounter for screening for cardiovascular disorders (principal); E55.9 Vitamin D deficiency, unspecified; E78.2 Mixed hyperlipidemia